=== PATIENT | female | born 1935 | race Caucasian/White ===

== ENCOUNTER 2018-01-03 12:19 | Emergency (ER) | payer MEDICARE, MEDICAID ==
[~2018-01-03] VITALS: Ht 154.9 cm; Wt 106.0 kg
[~2018-01-03 12:19] MED LIST: FURO40TA4 PO; GABA-532 PO; GLIM4TAB79 PO; HYDR-3972 PO; LANTUS SQ; PRE1T PO; SOTA80TA PO; VALS1TAB81 PO
[2018-01-03 15:37] LABS: BASOPHILS % (AUTO) 0.1 % (0-1); EOSINOPHILS # (AUTO) 0.3 X10'3 (0-0.9); EOSINOPHILS % (AUTO) 2.8 % (0-6); HEMATOCRIT 33.9 % (35.0-45.0); HEMOGLOBIN 11.1 g/dl (12.0-16.0); LYMPHOCYTES # (AUTO) 0.7 X10'3 (1.1-4.8); LYMPHOCYTES % (AUTO) 8.2 % (21-51); MEAN CORPUSCULAR HEMOGLOBIN 28.3 PG (27.0-31.0); MEAN CORPUSCULAR HGB CONC 32.8 % (33.0-36.5); MEAN CORPUSCULAR VOLUME 86.4 FL (78-98); MEAN PLATELET VOLUME 7.7 FL (7.4-10.4); MONOCYTES # (AUTO) 0.3 X10'3 (0-0.9); MONOCYTES % (AUTO) 3.9 % (2-12); NEUTROPHILS # (AUTO) 7.6 X10'3 (1.8-7.7); PLATELET COUNT 285 X10'3 (140-440); RED BLOOD COUNT 3.93 X10'6 (4.20-5.60)
[2018-01-03 15:46] LABS: CLARITY,URINE Clear (Clear); GLUCOSE, URINE Negative (Neg); KETONES,URINE Negative (Neg); LEUKOCYTE ESTERASE ,URINE Trace (Neg); NITRITES, URINE Negative (Neg); OCCULT BLOOD,URINE Negative (Neg); PROTEIN,URINE Negative (Neg); UROBILINOGEN,URINE 0.2 E.U/dL (0.2-1.0)
[2018-01-03 15:50] LABS: COLOR,URINE STRAW (Yellow); UA COLLECTION TYPE OTHER
[2018-01-03 15:51] VITALS: BP 167/76
[2018-01-03 15:57] LABS: BACTERIA,URINE NONE SEEN /HPF (Neg); MUCUS STRANDS NONE SEEN /LPF (Neg); RBC,URINE NONE SEEN /HPF (0-2); SQUAMOUS EPITHELIAL CELL,UR NONE SEEN /LPF (FEW); WBC,URINE NONE SEEN /HPF (0-4)
[2018-01-03 16:02] LABS: ALANINE AMINOTRANSFERASE 20 U/L (12-78); ALBUMIN 3.4 G/DL (3.4-5.0); ALBUMIN/GLOBULIN RATIO 0.9 (1.1-1.5); ALKALINE PHOSPHATASE 67 IU/L (46-116); ANION GAP 9 (8-16); ASPARTATE AMINO TRANSFERASE 13 U/L (10-37); BILIRUBIN,TOTAL 0.4 MG/DL (0.1-1.0); BLOOD UREA NITROGEN 26 MG/DL (7-18); CALCIUM 9.3 MG/DL (8.5-10.1); CHLORIDE 97 MMOL/L (99-107); GLUCOSE 198 MG/DL (70-104); MAGNESIUM 1.5 MG/DL (1.5-2.4); POTASSIUM 4.5 MMOL/L (3.5-5.1); SODIUM 136 MMOL/L (135-145); TOTAL CARBON DIOXIDE 30.5 MMOL/L (24-32); TOTAL PROTEIN 7.2 G/DL (6.4-8.2); eGFR 53 ML/MIN
== END 2018-01-03 18:45 | disposition home or self-care (01) ==
LOC: ER 12:20
DX: E11.42 Type 2 diabetes mellitus with diabetic polyneuropathy (principal); I50.9 Heart failure, unspecified; M79.7 Fibromyalgia; Z88.2 Allergy status to sulfonamides; Z79.4 Long term (current) use of insulin
CPT/HCPCS: 36415; 80053; 81001; 83735; 85025; 93971; 99285

== ENCOUNTER 2020-02-11 17:24 | Inpatient (IN) | payer MEDICARE, MEDICAID ==
[~2020-02-11] VITALS: Ht 162.6 cm; Wt 106.8 kg
[~2020-02-11 17:24] MED LIST changes: +GLIM4TAB7 PO; -GLIM4TAB79 PO
--- NOTE | 2020-02-11 18:35 | NUR ---
pt resides at [facility] on [address] here in [place]
[2020-02-11 18:45] LABS: ALANINE AMINOTRANSFERASE 14 U/L (12-78); ALBUMIN 2.6 G/DL (3.4-5.0); ALBUMIN/GLOBULIN RATIO 0.6 (1.1-1.5); ALKALINE PHOSPHATASE 78 IU/L (46-116); ANION GAP 5 (8-16); ASPARTATE AMINO TRANSFERASE 21 U/L (10-37); BILIRUBIN,TOTAL 0.6 MG/DL (0.1-1.0); BLOOD UREA NITROGEN 61 MG/DL (7-18); BUN/CREATININE RATIO 18.2 (6.6-38.0); CALCIUM 8.9 MG/DL (8.5-10.1); CHLORIDE 101 MMOL/L (99-107); CREATININE 3.35 MG/DL (0.40-0.90); GLUCOSE 145 MG/DL (70-104); MAGNESIUM 2.4 MG/DL (1.5-2.4); SODIUM 137 MMOL/L (135-145); TOTAL CARBON DIOXIDE 30.9 MMOL/L (24-32); TOTAL PROTEIN 6.7 G/DL (6.4-8.2); eGFR 13 ML/MIN
[2020-02-11 18:48] LABS: POTASSIUM 6.1 MMOL/L (3.5-5.1)
[2020-02-11 18:53] LABS: BASOPHILS % (AUTO) 0.4 % (0-1); EOSINOPHILS # (AUTO) 0.2 X10'3 (0-0.9); EOSINOPHILS % (AUTO) 1.6 % (0-6); HEMATOCRIT 28.7 % (35.0-45.0); HEMOGLOBIN 9.5 g/dl (12.0-16.0); LYMPHOCYTES # (AUTO) 0.6 X10'3 (1.1-4.8); LYMPHOCYTES % (AUTO) 5.1 % (21-51); MEAN CORPUSCULAR HEMOGLOBIN 29.2 PG (27.0-31.0); MEAN CORPUSCULAR HGB CONC 33.2 g/dL (33.0-36.5); MEAN PLATELET VOLUME 8.3 FL (7.4-10.4); MONOCYTES % (AUTO) 8.8 % (2-12); NEUTROPHILS # (AUTO) 9.8 X10'3 (1.8-7.7); NEUTROPHILS % (AUTO) 84.1 % (42-75); PLATELET COUNT 301 X10'3 (140-440); RED BLOOD COUNT 3.27 X10'6 (4.20-5.60); RED CELL DISTRIBUTION WIDTH 14.6 % (11.5-14.5); WHITE BLOOD COUNT 11.6 X10'3 (4.5-11.0)
[2020-02-11] MEDS ORDERED: furosemide 40mg/4ml inj IV ONE (18:55)
[2020-02-11] MEDS ORDERED: insulin regular, human U-100 3ml vial - multi-dose IV ONE (18:55)
[2020-02-11] MEDS ORDERED: dextrose 50%-water 50ml dispensing syringe IV ONE (18:55)
[2020-02-11] MEDS ORDERED: sodium bicarbonate (8.4%) 1 mEq/ml syringe IV ONE (18:55)
[2020-02-11] MEDS ORDERED: calcium chloride 100 MG/1 ML inj IV ONE (18:55)
[2020-02-11] MEDS ORDERED: LIDOcaine 2% 10ml TOPICAL JELLY (Urojet) TP ONE (18:55)
[2020-02-11 19:45] LABS: CLARITY,URINE CLEAR (Clear); COLOR,URINE YELLOW (Yellow); GLUCOSE, URINE NEGATIVE (Neg); KETONES,URINE NEGATIVE (Neg); LEUKOCYTE ESTERASE ,URINE NEGATIVE (Neg); NITRITES, URINE NEGATIVE (Neg); OCCULT BLOOD,URINE TRACE-INTACT (Neg); PROTEIN,URINE TRACE mg/dl (Neg); UROBILINOGEN,URINE 0.2 E.U/dL (0.2-1.0)
[2020-02-11 19:52] LABS: UA COLLECTION TYPE FOLEY CATH
[2020-02-11 19:54] LABS: BACTERIA,URINE NONE SEEN /HPF (Neg); RBC,URINE NONE SEEN /HPF (0-2); SQUAMOUS EPITHELIAL CELL,UR NONE SEEN /LPF (FEW); TRANSITIONAL EPI CELLS,URINE FEW /HPF; WBC,URINE 0-4 /HPF (0-4)
--- NOTE | 2020-02-11 20:35 | NUR ---
PT NEPHEW, [employer] . PLEASE CALL HIM IF PT NEEDS ANYTHING.
[2020-02-11 21:03] LABS: TOTAL PROTEIN,URINE RANDOM 45.9 MG/DL
--- NOTE | 2020-02-11 21:33 | NUR ---
received pt med list from nicholas connors via telephone. confirmed dosages with pt
[2020-02-11] MEDS ORDERED: ERGO400C (21:39)
[2020-02-11] MEDS ORDERED: ASPI81TA52 PO (21:39)
[2020-02-11] MEDS ORDERED: GLIM4TAB7 PO (21:39)
[2020-02-11] MEDS ORDERED: magnesium hydroxide 30ml (MOM) UD suspension PO PRN (21:45)
[2020-02-11] MEDS ORDERED: acetaminophen 325mg tablet PO PRN (21:45)
[2020-02-11] MEDS ORDERED: sodium polystyrene sulfonate 15gm/60ml oral suspension PO ONE (21:50)
[2020-02-11 21:55] LABS: UA EOSINOPHILS RARE EOS /HPF
--- NOTE | 2020-02-11 22:41 | NUR ---
THIS BOTTOM SANDER NOTIFIED DR MARLEY OF PT O2 LEVELS DROPPING TO 75% WHILE PT IS SLEEPING. DONELL STATES PT HAS HAD OBSTRUCTIVE SLEEP APNEA FOR 11 YEARS AND PT HAS ALWAYS REFUSED CPAP USAGE WHILE SLEEPING. THIS BOTTOM SANDER ASKED PT IF SHE WOULD LIKE ONE WHILE STAYING IN HOSPITAL O2 IS IMPORTANT WHILE SLEEPING-PT REPLIED "NO" AND WENT BACK TO SLEEP. DONELL AWARE OF PT REFUSAL OF CPAP. IF PT CHANGES MIND, INFORM DONELL AND CPAP USAGE AT NIGHT CAN BE STARTED AT PT REQUEST.
[2020-02-11] MEDS: ciprofloxacin 250mg tablet PO SCH (22:51)
--- NOTE | 2020-02-11 23:17 | NUR ---
SPOKE WITH PT DAUGHTER RENNY WILLIS. DAUGHTER IS IN [place] RIGHT NOW AND WILL NOT BE VISITING AND DOES NOT HAVE A REACHABLE PHONE NUMBER BUT STATES THAT SHE WILL CALL DAILY TO GET UPDATES ABOUT PT CONDITION
[2020-02-12 00:35] VITALS: BP 138/51
--- NOTE | 2020-02-12 05:31 | NUR ---
REVIEWED AND AGREE WITH SRN ASSESSMENT FINDINGS
[2020-02-12 06:00] VITALS: BP 135/63
--- NOTE | 2020-02-12 06:15 | NUR ---
Problems reprioritized. Patient report given, questions answered & plan of care reviewed with PANKAJ Orozco.
--- NOTE | 2020-02-12 06:48 | NUR ---
Patient in room PCU 3023. I have received report from MOSES LIRA and had the opportunity to ask questions and assume patient care.
[2020-02-12 06:57] LABS: ALANINE AMINOTRANSFERASE 11 U/L (12-78); ALBUMIN 2.2 G/DL (3.4-5.0); ALBUMIN/GLOBULIN RATIO 0.6 (1.1-1.5); ALKALINE PHOSPHATASE 68 IU/L (46-116); ANION GAP 2 (8-16); ASPARTATE AMINO TRANSFERASE 18 U/L (10-37); BILIRUBIN,TOTAL 0.7 MG/DL (0.1-1.0); BLOOD UREA NITROGEN 55 MG/DL (7-18); BUN/CREATININE RATIO 17.2 (6.6-38.0); CALCIUM 9.3 MG/DL (8.5-10.1); CHLORIDE 102 MMOL/L (99-107); GLUCOSE 140 MG/DL (70-104); POTASSIUM 4.8 MMOL/L (3.5-5.1); SODIUM 142 MMOL/L (135-145); TOTAL CARBON DIOXIDE 37.7 MMOL/L (24-32); TOTAL PROTEIN 6.1 G/DL (6.4-8.2); eGFR 14 ML/MIN
[2020-02-12 06:58] LABS: BASOPHILS % (AUTO) 0.4 % (0-1); EOSINOPHILS # (AUTO) 0.2 X10'3 (0-0.9); EOSINOPHILS % (AUTO) 1.7 % (0-6); HEMATOCRIT 29.6 % (35.0-45.0); HEMOGLOBIN 9.9 g/dl (12.0-16.0); LYMPHOCYTES # (AUTO) 0.5 X10'3 (1.1-4.8); MEAN CORPUSCULAR HEMOGLOBIN 29.4 PG (27.0-31.0); MEAN CORPUSCULAR HGB CONC 33.4 g/dL (33.0-36.5); MEAN CORPUSCULAR VOLUME 88.1 FL (78-98); MEAN PLATELET VOLUME 8.1 FL (7.4-10.4); MONOCYTES # (AUTO) 0.8 X10'3 (0-0.9); MONOCYTES % (AUTO) 9.1 % (2-12); NEUTROPHILS # (AUTO) 7.5 X10'3 (1.8-7.7); NEUTROPHILS % (AUTO) 82.8 % (42-75); PLATELET COUNT 269 X10'3 (140-440); RED BLOOD COUNT 3.36 X10'6 (4.20-5.60); RED CELL DISTRIBUTION WIDTH 14.5 % (11.5-14.5); WHITE BLOOD COUNT 9.1 X10'3 (4.5-11.0)
[2020-02-12 07:30] LABS: HEMOGLOBIN A1C 7.8 % (4.5-6.2)
[2020-02-12] MEDS ORDERED: predniSONE 5mg tablet PO SCH ×2 (08:00→08:03)
[2020-02-12] MEDS ORDERED: HYDROchlorothiazide 12.5mg capsule PO SCH (08:00)
[2020-02-12] MEDS ORDERED: losartan 50mg tablet PO SCH (08:00)
[2020-02-12] MEDS ORDERED: aspirin 81mg tablet.DR PO SCH (08:00)
[2020-02-12] MEDS ORDERED: predniSONE 1 mg tablet PO SCH ×2 (08:05→08:06)
[2020-02-12] MEDS: sotalol 80mg tablet PO SCH ×2 (08:12→20:48)
[2020-02-12] MEDS: heparin, porcine 5000 units/ml vial SQ SCH ×2 (08:15→20:49)
[2020-02-12] MEDS: predniSONE 1 mg tablet PO SCH ×2 (09:58→12:18)
[2020-02-12] MEDS: ciprofloxacin 250mg tablet PO SCH ×3 (10:00→22:44)
--- NOTE | 2020-02-12 10:49 | NUR ---
PAGER ID: [phone] MESSAGE: ANDRAE [phone] RE: [id number] CHELI CAMPBELL PT WAS HARD TO AROUSE, VS 118/88, HR 83 O2 94% 4L
[2020-02-12 11:00] VITALS: BP 128/69
--- NOTE | 2020-02-12 12:26 | NUR ---
PAGER ID: [phone] MESSAGE: ANDRAE [id number] RE: [id number] [facility], SAYS SHE MAY BENEFIT FROM A DEBRIDEMENT ON THE LEFT FOOT WOUND, FEELS IT IS DOWN TO THE BONE.
[2020-02-12] MEDS ORDERED: insulin Lispro (HumaLOG) vial - multi-dose SQ SCH (13:10)
[2020-02-12] MEDS ORDERED: glucagon, human recombinant 1mg kit SUBCUT PRN (13:10)
[2020-02-12] MEDS ORDERED: MESSAGE TO PHARMACY PO ONE (13:10)
[2020-02-12] MEDS ORDERED: dextrose 50%-water 50ml dispensing syringe IV PRN ×2 (13:10)
[2020-02-12] MEDS ORDERED: dextrose ORAL solution 15 GM/59 ML bottle PO PRN ×2 (13:10)
[2020-02-12] MEDS ORDERED: acetaminophen 325mg tablet PO PRN (13:40)
[2020-02-12 15:00] VITALS: BP 114/51
[2020-02-12] MEDS: normal saline 1000ml 1,000 ML IV SCH ×2 (15:21→22:40)
--- NOTE | 2020-02-12 16:28 | NUR ---
PAGER ID: [phone] MESSAGE: ANDRAE [phone] RE: CHELI [id number] PT C/O GAS PAIN, SIMETHICONE?
--- NOTE | 2020-02-12 16:54 | NUR ---
DM/Malnutrition consult. Current pt stated weight at 106.82 kg this admission and per documented weight history her stated weight in 2018 was 106 kg; no reported change in weight. No edema. Normal muscle strength. Appetite is poor, PO intake 0-25% carb controlled diet. Does not meet more than two criteria for malnutrition, no malnutrition at this time. Pt admitted with non healing left foot DM ulcer, pulmonary HTN, sleep apnea, CHF, MIKE, hyperkalemia, and DJD. Patient seen at bedside due to A1c of 7.8%, given written DM education handout with verbal review and referral to outpatient DM education class on Saturday. Also given written high protein education handout with verbal review in view of wound healing needs d/t DM foot ulcer. Reports no chewing or swallowing difficulty, reports no GI symptoms. Is agreeable to an oral nutrition supplement for protein in view of suboptimal PO intake. Recommend Glucerna with meals, notified MD. Will continue to follow. Addendum: 02/12/20 at [address] Amended: Links added.
--- NOTE | 2020-02-12 17:59 | NUR ---
Student documentation: I have reviewed and agree with all interventions, assessments performed and documented by JAMES HORVATH. Student Medication Administration: For this medication-pass time frame, all medication were reviewed, dispensed, administered and documented per hospital policy by JAMES HORVATH.
[2020-02-12] MEDS: NUT.TX.GLUC.INTOLER,LAC-FR,SOY (GLUCERNA) 237 ML PO SCH (18:00)
--- NOTE | 2020-02-12 18:19 | NUR ---
Problems reprioritized. Patient report given, questions answered & plan of care reviewed with BRENDA LIRA.
[2020-02-12 19:00] VITALS: BP 143/69
[2020-02-12] MEDS: lactobacillus rhamnosus 10,000 MMU CELLS/CAPSULE PO SCH (20:48)
[2020-02-12] MEDS: insulin glargine (Lantus) pen - multi-dose SQ SCH (21:00)
[2020-02-12] MEDS: simethicone 125mg capsule PO PRN (22:55)
[2020-02-12 23:00] VITALS: BP 144/61
[2020-02-13 03:00] VITALS: BP 128/68
[2020-02-13 05:13] LABS: BASOPHILS % (AUTO) 0.4 % (0-1); EOSINOPHILS # (AUTO) 0.3 X10'3 (0-0.9); EOSINOPHILS % (AUTO) 2.6 % (0-6); HEMATOCRIT 29.6 % (35.0-45.0); HEMOGLOBIN 9.8 g/dl (12.0-16.0); LYMPHOCYTES # (AUTO) 0.6 X10'3 (1.1-4.8); LYMPHOCYTES % (AUTO) 6.6 % (21-51); MEAN CORPUSCULAR HGB CONC 33.2 g/dL (33.0-36.5); MEAN CORPUSCULAR VOLUME 87.5 FL (78-98); MEAN PLATELET VOLUME 8.1 FL (7.4-10.4); MONOCYTES # (AUTO) 0.9 X10'3 (0-0.9); MONOCYTES % (AUTO) 9.2 % (2-12); NEUTROPHILS # (AUTO) 7.9 X10'3 (1.8-7.7); NEUTROPHILS % (AUTO) 81.2 % (42-75); PLATELET COUNT 263 X10'3 (140-440); RED BLOOD COUNT 3.38 X10'6 (4.20-5.60); RED CELL DISTRIBUTION WIDTH 14.5 % (11.5-14.5); WHITE BLOOD COUNT 9.7 X10'3 (4.5-11.0)
[2020-02-13 05:30] LABS: ALANINE AMINOTRANSFERASE 12 U/L (12-78); ALBUMIN/GLOBULIN RATIO 0.5 (1.1-1.5); ALKALINE PHOSPHATASE 70 IU/L (46-116); ANION GAP 2 (8-16); ASPARTATE AMINO TRANSFERASE 13 U/L (10-37); BILIRUBIN,TOTAL 0.6 MG/DL (0.1-1.0); BLOOD UREA NITROGEN 48 MG/DL (7-18); BUN/CREATININE RATIO 17.8 (6.6-38.0); CALCIUM 8.3 MG/DL (8.5-10.1); CHLORIDE 100 MMOL/L (99-107); GLUCOSE 154 MG/DL (70-104); POTASSIUM 4.4 MMOL/L (3.5-5.1); SODIUM 141 MMOL/L (135-145); TOTAL CARBON DIOXIDE 38.8 MMOL/L (24-32); TOTAL PROTEIN 5.8 G/DL (6.4-8.2); eGFR 17 ML/MIN
[2020-02-13 06:00] VITALS: BP 136/87
--- NOTE | 2020-02-13 06:29 | NUR ---
Patient in room PCU 3009. I have received report from Cynthia LIRA and had the opportunity to ask questions and assume patient care.
[2020-02-13] MEDS: predniSONE 1 mg tablet PO SCH (07:14)
[2020-02-13] MEDS: lactobacillus rhamnosus 10,000 MMU CELLS/CAPSULE PO SCH ×2 (07:14→19:33)
[2020-02-13] MEDS: sotalol 80mg tablet PO SCH ×2 (07:14→19:34)
[2020-02-13] MEDS: mag hydrox/Alum hydrox/simeth 30ml oral suspension PO PRN (07:15)
[2020-02-13] MEDS: heparin, porcine 5000 units/ml vial SQ SCH ×2 (07:15→19:32)
[2020-02-13] MEDS: NUT.TX.GLUC.INTOLER,LAC-FR,SOY (GLUCERNA) 237 ML PO SCH ×3 (08:00→18:39)
[2020-02-13] MEDS: normal saline 1000ml 1,000 ML IV SCH ×2 (08:40→18:40)
[2020-02-13] MEDS: ondansetron/PF 4mg/2ml inj IV PRN (09:07)
[2020-02-13] MEDS: ciprofloxacin 250mg tablet PO SCH (09:07)
[2020-02-13 11:00] VITALS: BP 128/67
[2020-02-13 15:00] VITALS: BP 121/66
--- NOTE | 2020-02-13 17:32 | NUR ---
received orders to change cipro to cefazolin for cellulitis to E
[2020-02-13 18:00] VITALS: BP 120/58
--- NOTE | 2020-02-13 18:28 | NUR ---
Problems reprioritized. Patient report given, questions answered & plan of care reviewed with Carmen LIRA.
--- NOTE | 2020-02-13 18:36 | NUR ---
Patient in room PCU 3009. I have received report from Juma LIRA and had the opportunity to ask questions and assume patient care.
[2020-02-13] MEDS: traMADol 50MG tablet PO PRN (19:36)
[2020-02-13] MEDS: cefazolin/dext.iso 2gm/100ml 100 ML IV SCH (19:39)
[2020-02-13] MEDS: insulin glargine (Lantus) pen - multi-dose SQ SCH (21:00)
--- NOTE | 2020-02-13 21:34 | NUR ---
Patient met hyperglycemic protocol. Attempted to administer insulin per protocol. Patient refuses insulin at this time.
[2020-02-13 22:00] VITALS: BP 141/71
[2020-02-14 02:00] VITALS: BP 138/63
--- NOTE | 2020-02-14 03:00 | NUR ---
Patient in room PCU 3009. I have received report from Shannan LIRA and had the opportunity to ask questions and assume patient care.
--- NOTE | 2020-02-14 03:02 | NUR ---
Problems reprioritized. Patient report given, questions answered & plan of care reviewed with Sia LIRA.
[2020-02-14] MEDS: normal saline 1000ml 1,000 ML IV SCH ×2 (04:40→15:51)
--- NOTE | 2020-02-14 05:59 | NUR ---
Student documentation: I have reviewed and agree with all interventions, assessments performed and documented by Marita HORVATH. Student Medication Administration: For this medication-pass time frame, all medication were reviewed, dispensed, administered and documented per hospital policy by Marita HORVATH.
[2020-02-14 06:04] LABS: BASOPHILS # (AUTO) 0.1 X10'3 (0-0.2); BASOPHILS % (AUTO) 0.8 % (0-1); EOSINOPHILS # (AUTO) 0.2 X10'3 (0-0.9); EOSINOPHILS % (AUTO) 2.5 % (0-6); HEMATOCRIT 28.7 % (35.0-45.0); HEMOGLOBIN 9.5 g/dl (12.0-16.0); LYMPHOCYTES # (AUTO) 0.6 X10'3 (1.1-4.8); LYMPHOCYTES % (AUTO) 6.5 % (21-51); MEAN PLATELET VOLUME 8.3 FL (7.4-10.4); MONOCYTES # (AUTO) 0.8 X10'3 (0-0.9); MONOCYTES % (AUTO) 8.4 % (2-12); NEUTROPHILS # (AUTO) 7.7 X10'3 (1.8-7.7); NEUTROPHILS % (AUTO) 81.8 % (42-75); PLATELET COUNT 274 X10'3 (140-440); RED BLOOD COUNT 3.27 X10'6 (4.20-5.60); RED CELL DISTRIBUTION WIDTH 14.4 % (11.5-14.5); WHITE BLOOD COUNT 9.4 X10'3 (4.5-11.0)
[2020-02-14 06:34] LABS: ALANINE AMINOTRANSFERASE 9 U/L (12-78); ALBUMIN/GLOBULIN RATIO 0.5 (1.1-1.5); ALKALINE PHOSPHATASE 65 IU/L (46-116); ANION GAP 4 (8-16); ASPARTATE AMINO TRANSFERASE 13 U/L (10-37); BILIRUBIN,TOTAL 0.4 MG/DL (0.1-1.0); BLOOD UREA NITROGEN 38 MG/DL (7-18); BUN/CREATININE RATIO 18.8 (6.6-38.0); CHLORIDE 101 MMOL/L (99-107); CREATININE 2.02 MG/DL (0.40-0.90); GLUCOSE 149 MG/DL (70-104); POTASSIUM 4.3 MMOL/L (3.5-5.1); SODIUM 140 MMOL/L (135-145); TOTAL CARBON DIOXIDE 34.9 MMOL/L (24-32); eGFR 24 ML/MIN
--- NOTE | 2020-02-14 06:42 | NUR ---
Patient in room PCU 3009. I have received report from Sia LIRA and had the opportunity to ask questions and assume patient care.
--- NOTE | 2020-02-14 06:49 | NUR ---
Problems reprioritized. Patient report given, questions answered & plan of care reviewed with Brittany LIRA.
[2020-02-14 07:00] VITALS: BP 134/78
[2020-02-14] MEDS: predniSONE 1 mg tablet PO SCH (07:35)
[2020-02-14] MEDS: lactobacillus rhamnosus 10,000 MMU CELLS/CAPSULE PO SCH ×2 (07:35→21:37)
[2020-02-14] MEDS: cefazolin/dext.iso 2gm/100ml 100 ML IV SCH ×2 (07:35→21:35)
[2020-02-14] MEDS: sotalol 80mg tablet PO SCH ×2 (07:35→21:35)
[2020-02-14] MEDS: heparin, porcine 5000 units/ml vial SQ SCH ×2 (07:36→21:37)
[2020-02-14] MEDS: NUT.TX.GLUC.INTOLER,LAC-FR,SOY (GLUCERNA) 237 ML PO SCH ×3 (08:00→18:00)
[2020-02-14] MEDS: ondansetron/PF 4mg/2ml inj IV PRN ×2 (09:28→18:58)
--- NOTE | 2020-02-14 09:32 | NUR ---
Pt. complained of mild nausea, saltine crackers administered to assist with GI upset. Re-assment and patient is more nauseated. PRN Zofran given. MD at bedside and aware of nausea. IVF to continue with MIKE. Pt. is not in any respiratory distress.
[2020-02-14 11:00] VITALS: BP 154/76
[2020-02-14] MEDS: traMADol 50MG tablet PO PRN ×4 (11:33→23:34)
--- NOTE | 2020-02-14 11:42 | NUR ---
Received a phone call from Pt's daughter Bebe, patient was abrupt and rude stating, "Im getting mad at you guys because your not doing what you said, she was supposed to be getting Ultram routinely." Explained that her mothers only complaint for this nurse was nausea today. Pt. was repositioned for mild 2/10 neck pain where she reported feeling better with the position change. Pt's nephew was at the bedside all morning and stated that there is a lot of family dynamics and he stated he was concerned about the patients daughter pulling her out. Pt's daughter made statements of wanting to discharge her mother back to live with her and not home. Went in immediately and asked about pain or any other complaints that she made have had. She did in fact state, "Im not comfortable." Asked if she was in pain and if she felt she needed her PRN Ultram which she stated, "yes." Ultram administered and patient was repositioned. Pt. stated the Ultram worked well for her yesterday. Pt. offers no other complaints at this time. Pt's daughter stated that her mother tends to not complain about what really going on with her, asked pt. if this is correct and she stated, "Probably." Pt. then stated, "My daughter is bossy." Provided 1:1 active listening and reminded her to please inform nursing staff if she has any needs that need to be met at this time." Will continue to monitor.
--- NOTE | 2020-02-14 11:52 | NUR ---
I SPOKE WITH PATIENTS DAUGHTER WHO STATED THAT "MY MOTHER HAS BEEN PUT BACK INTO A STATE OF HELL". PATIENTS DAUGHTER STATED THAT THE RN IS WITH HOLDING PAIN MEDS FROM HER AND WANTED THE ORDER CHANGED FROM PRN TO A SCHEDULED DOSE. I INFORMED HER THAT THE MD HAS TO OK THAT ORDER AND I WOULD PASS IT ALONG TO THE PRIMARY RN. ALSO INFORMED DAUGHTER THAT THE RN HAD GIVEN PAIN MEDS JUST RECENTLY.
--- NOTE | 2020-02-14 11:58 | NUR ---
Charge nurse reported that the daughter called requesting PRN Ultram to be changed to routine. Asked patient specifically if this is something she is in agreement with since she hadn't been complaining of pain to this nurse. She stated, "yes I would like that." Requested again that she inform nursing of any of her complaints so that nursing can address instead of her daughter calling and speaking for her. Nursing was patient and provided a lot of 1:1 time. Pt. refused therapy initially. Asked if she would like to get up and stretch her back since she has been in bed a lot and she has been medicated already with Ultram. Page sent to MD to address pain medications.
--- NOTE | 2020-02-14 12:01 | NUR ---
PAGER ID: [phone] MESSAGE: [phone] Debbie Bolton - Can we change Ultram to q 4 hrs ATC? Brittany LIRA [phone]
--- NOTE | 2020-02-14 12:04 | NUR ---
Patient is currently getting up with PT, offers no other complaints at this time.
--- NOTE | 2020-02-14 12:15 | NUR ---
Patient up in chair and appears to be comfortable at this time, PT still in the room working with patient. Will continue to monitor.
--- NOTE | 2020-02-14 12:25 | NUR ---
Followed up with patient regarding nausea, pt. stated, "I want water!!" Provided water and asked again, "Do you need another dose of Zofran.?" Pt. stated she has gas. PRN Gas relief provided and reminded patient to let nursing know if pain is not managed or if she needs more nausea medication, Pt. verbalized understanding
[2020-02-14] MEDS: simethicone 125mg capsule PO PRN (12:30)
--- NOTE | 2020-02-14 12:49 | NUR ---
Re-assessment: Pt. offers no complaints. Sitting in chair eating peaches at the moment. Denies any further discomfort and appears happy that she got up with therapy. Pt. thanked staff for their patience.
--- NOTE | 2020-02-14 13:25 | NUR ---
Patients daughter is at bedside, in good spirits which was different than her previous approach on the phone. Pt. is up in chair and offers no complaints. Pt's daughter has multiple concerns regarding her discharge. 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 Stated she has a bed and a lift for her mom to go home on hospice with her. Referred concerns to case management to discuss discharge plans. Explained the importance of preserving her kidney function but managing her pain as well. Explained that MD was paged to see if Ultram could be changed to routine but unsure if that is a good idea for her. Pt. stated she is comfortable at this time.
--- NOTE | 2020-02-14 13:34 | NUR ---
Patients daughter wanted to let nursing staff know that, "My mom is 100% Sicilian and does not always tell people if she needs something, I really do think it's a cultural thing." Informed her that nursing will pass this information along to all involved in care.
--- NOTE | 2020-02-14 14:53 | NUR ---
Patient offers no complaints, stated nausea and pain is under control. Declined wanting to go back to bed, stated she would probably go back to bed around 3:30-4:00 pm. Will reassess.
[2020-02-14 15:00] VITALS: BP 112/58
--- NOTE | 2020-02-14 16:36 | NUR ---
Patient was transferred back to bed and she was medicated with PRN Ultram. Pt. is doing well today. IV started sounding with "high pressure alarm" PIV flushed but took a little resistance. New PIV placed to L wrist area and NS is infusing per MD order without any complications. Pt. tolerated the procedure very well. Pt. stated that she was feeling good. Will continue to monitor.
--- NOTE | 2020-02-14 17:40 | NUR ---
Patient is resting comfortably with family at the bedside. Pt. offers no complaints and appears in good spirits. Will continue to monitor.
[2020-02-14 18:00] VITALS: BP 164/58
--- NOTE | 2020-02-14 18:12 | NUR ---
Problems reprioritized. Patient report given, questions answered & plan of care reviewed with Roger LIRA.
--- NOTE | 2020-02-14 18:35 | NUR ---
Patient in room PCU 3009. I have received report from Brittany LIRA and had the opportunity to ask questions and assume patient care.
[2020-02-14] MEDS: insulin glargine (Lantus) pen - multi-dose SQ SCH (21:00)
[2020-02-14 21:28] VITALS: BP 161/74
[2020-02-14] MEDS: mag hydrox/Alum hydrox/simeth 30ml oral suspension PO PRN (21:49)
[2020-02-14] MEDS ORDERED: proCHLORperazine 10 MG/2 ml inj IV PRN (23:05)
[2020-02-15] VITALS (8 sets, daily range): BP systolic 133–173; BP diastolic 70–87
--- NOTE | 2020-02-15 00:18 | NUR ---
PAGER ID: [phone] MESSAGE: Patient Debbie Bolton in room 3003S is requesting a sleeping pill. [facility] Arely [id number]
[2020-02-15] MEDS ORDERED: temazepam 15mg capsule PO PRN (00:20)
--- NOTE | 2020-02-15 02:24 | NUR ---
PAGER ID: [phone] MESSAGE: Patient Maya Bolton in room 3009A desated while on NC and is currently has an oxygen saturation in the 90s while on a nonrebreather 12.0 LPM. [facility] Arely [phone]
--- NOTE | 2020-02-15 02:54 | NUR ---
Patient was given restoril to help sleep by break nurse. patient became very tired, sat on edge of bed with the nephew. was starting to fall asleep on the edge of the bed. patient was repositioned in bed, shortly after desaturated to 64%, systolic blood pressure of 98. A nonrebreather mask was put on the patient and her O2 was brought up to 93. Patient is on 3L NC currently with systolic pressure of 136. patient is sleepy but arousable. Dr. Gibson is aware and ordered to DC the restoril. Will continue to monitor the patient.
[2020-02-15] MEDS: normal saline 1000ml 1,000 ML IV SCH (03:59)
[2020-02-15 05:28] LABS: BASOPHILS % (AUTO) 0.3 % (0-1); EOSINOPHILS # (AUTO) 0.2 X10'3 (0-0.9); HEMATOCRIT 28.7 % (35.0-45.0); HEMOGLOBIN 9.3 g/dl (12.0-16.0); LYMPHOCYTES # (AUTO) 0.6 X10'3 (1.1-4.8); LYMPHOCYTES % (AUTO) 7.7 % (21-51); MEAN CORPUSCULAR HEMOGLOBIN 28.5 PG (27.0-31.0); MEAN CORPUSCULAR HGB CONC 32.4 g/dL (33.0-36.5); MEAN CORPUSCULAR VOLUME 87.8 FL (78-98); MEAN PLATELET VOLUME 8.5 FL (7.4-10.4); MONOCYTES # (AUTO) 0.7 X10'3 (0-0.9); MONOCYTES % (AUTO) 7.9 % (2-12); NEUTROPHILS # (AUTO) 6.8 X10'3 (1.8-7.7); NEUTROPHILS % (AUTO) 82.1 % (42-75); PLATELET COUNT 249 X10'3 (140-440); RED BLOOD COUNT 3.27 X10'6 (4.20-5.60); RED CELL DISTRIBUTION WIDTH 14.3 % (11.5-14.5); WHITE BLOOD COUNT 8.3 X10'3 (4.5-11.0)
[2020-02-15 05:50] LABS: ALANINE AMINOTRANSFERASE 9 U/L (12-78); ALBUMIN/GLOBULIN RATIO 0.5 (1.1-1.5); ALKALINE PHOSPHATASE 66 IU/L (46-116); ANION GAP 1 (8-16); ASPARTATE AMINO TRANSFERASE 14 U/L (10-37); BILIRUBIN,TOTAL 0.3 MG/DL (0.1-1.0); BLOOD UREA NITROGEN 35 MG/DL (7-18); BUN/CREATININE RATIO 21.3 (6.6-38.0); CALCIUM 7.4 MG/DL (8.5-10.1); CHLORIDE 98 MMOL/L (99-107); CREATININE 1.64 MG/DL (0.40-0.90); GLUCOSE 145 MG/DL (70-104); POTASSIUM 4.4 MMOL/L (3.5-5.1); SODIUM 133 MMOL/L (135-145); TOTAL PROTEIN 5.8 G/DL (6.4-8.2); eGFR 30 ML/MIN
--- NOTE | 2020-02-15 06:15 | NUR ---
Problems reprioritized. Patient report given, questions answered & plan of care reviewed with Mena LIRA.
--- NOTE | 2020-02-15 06:30 | NUR ---
Patient in room PCU 3009. I have received report from Lazarus LIRA and had the opportunity to ask questions and assume patient care.
[2020-02-15] MEDS: lactobacillus rhamnosus 10,000 MMU CELLS/CAPSULE PO SCH ×2 (07:39→21:52)
[2020-02-15] MEDS: heparin, porcine 5000 units/ml vial SQ SCH ×2 (07:39→21:53)
[2020-02-15] MEDS: predniSONE 1 mg tablet PO SCH (07:39)
[2020-02-15] MEDS: cefazolin/dext.iso 2gm/100ml 100 ML IV SCH ×2 (07:39→21:52)
[2020-02-15] MEDS: NUT.TX.GLUC.INTOLER,LAC-FR,SOY (GLUCERNA) 237 ML PO SCH ×3 (07:39→18:00)
[2020-02-15] MEDS: sotalol 80mg tablet PO SCH ×2 (07:39→21:52)
[2020-02-15] MEDS: traMADol 50MG tablet PO PRN ×2 (10:28→20:01)
[2020-02-15] MEDS: simethicone 125mg capsule PO PRN ×2 (10:28→20:46)
--- NOTE | 2020-02-15 10:50 | NUR ---
Dr Porter at the bedside assessing patient, received orders to stop IV fluids. Will continue to monitor the patient closely.
--- NOTE | 2020-02-15 18:28 | NUR ---
Problems reprioritized. Patient report given, questions answered & plan of care reviewed with Lazarus LIRA .
--- NOTE | 2020-02-15 18:41 | NUR ---
Patient in room PCU 3009. I have received report from Mena LIRA and had the opportunity to ask questions and assume patient care.
[2020-02-15] MEDS: insulin glargine (Lantus) pen - multi-dose SQ SCH (21:00)
[2020-02-15] MEDS: mag hydrox/Alum hydrox/simeth 30ml oral suspension PO PRN (22:32)
[2020-02-16 02:30] VITALS: BP 162/90
[2020-02-16] MEDS: ondansetron/PF 4mg/2ml inj IV PRN (04:58)
[2020-02-16 05:21] LABS: BASOPHILS % (AUTO) 0.5 % (0-1); EOSINOPHILS # (AUTO) 0.3 X10'3 (0-0.9); EOSINOPHILS % (AUTO) 4.2 % (0-6); HEMATOCRIT 29.7 % (35.0-45.0); HEMOGLOBIN 10.3 g/dl (12.0-16.0); LYMPHOCYTES # (AUTO) 0.6 X10'3 (1.1-4.8); LYMPHOCYTES % (AUTO) 7.7 % (21-51); MEAN CORPUSCULAR HEMOGLOBIN 29.6 PG (27.0-31.0); MEAN CORPUSCULAR HGB CONC 34.5 g/dL (33.0-36.5); MEAN CORPUSCULAR VOLUME 85.6 FL (78-98); MONOCYTES # (AUTO) 0.6 X10'3 (0-0.9); MONOCYTES % (AUTO) 6.9 % (2-12); NEUTROPHILS # (AUTO) 6.7 X10'3 (1.8-7.7); NEUTROPHILS % (AUTO) 80.7 % (42-75); PLATELET COUNT 326 X10'3 (140-440); RED BLOOD COUNT 3.47 X10'6 (4.20-5.60); RED CELL DISTRIBUTION WIDTH 14.2 % (11.5-14.5); WHITE BLOOD COUNT 8.2 X10'3 (4.5-11.0)
[2020-02-16 06:00] VITALS: BP 143/77
--- NOTE | 2020-02-16 06:08 | NUR ---
Problems reprioritized. Patient report given, questions answered & plan of care reviewed with Mena LIRA.
--- NOTE | 2020-02-16 06:09 | NUR ---
Patient in room PCU 3009. I have received report from Lazarus LIRA and had the opportunity to ask questions and assume patient care.
[2020-02-16] MEDS: traMADol 50MG tablet PO PRN ×2 (06:18→14:12)
[2020-02-16 06:24] LABS: ALBUMIN 2.2 G/DL (3.4-5.0); ALBUMIN/GLOBULIN RATIO 0.5 (1.1-1.5); ALKALINE PHOSPHATASE 71 IU/L (46-116); ANION GAP 5 (8-16); ASPARTATE AMINO TRANSFERASE 20 U/L (10-37); BILIRUBIN,TOTAL 0.3 MG/DL (0.1-1.0); BLOOD UREA NITROGEN 29 MG/DL (7-18); BUN/CREATININE RATIO 19.6 (6.6-38.0); CALCIUM 7.6 MG/DL (8.5-10.1); CHLORIDE 96 MMOL/L (99-107); CREATININE 1.48 MG/DL (0.40-0.90); GLUCOSE 111 MG/DL (70-104); POTASSIUM 4.2 MMOL/L (3.5-5.1); SODIUM 135 MMOL/L (135-145); TOTAL CARBON DIOXIDE 34.4 MMOL/L (24-32); TOTAL PROTEIN 6.4 G/DL (6.4-8.2); eGFR 34 ML/MIN
[2020-02-16 06:30] LABS: ALANINE AMINOTRANSFERASE < 6 U/L (12-78)
[2020-02-16] MEDS: cefazolin/dext.iso 2gm/100ml 100 ML IV SCH (08:47)
[2020-02-16] MEDS: NUT.TX.GLUC.INTOLER,LAC-FR,SOY (GLUCERNA) 237 ML PO SCH ×2 (08:48→13:26)
[2020-02-16] MEDS: lactobacillus rhamnosus 10,000 MMU CELLS/CAPSULE PO SCH (08:48)
[2020-02-16] MEDS: sotalol 80mg tablet PO SCH (08:48)
[2020-02-16] MEDS: predniSONE 1 mg tablet PO SCH (08:48)
[2020-02-16] MEDS: heparin, porcine 5000 units/ml vial SQ SCH (08:48)
[2020-02-16] MEDS ORDERED: furosemide 20 MG/2 ML vial IV ONE (10:30)
[2020-02-16] MEDS: simethicone 125mg capsule PO PRN (10:31)
[2020-02-16 11:00] VITALS: BP 165/84
[2020-02-16 11:05] VITALS: BP 155/82
--- NOTE | 2020-02-16 11:20 | NUR ---
Answered phone for room 9 and was yelled at by a woman who claimed to be the patient's daughter Bebe. Bebe was speaking wildly about multiple different things and saying that our OR NURSE MANAGER's are not educated. Bebe then asked me if I thought the Caronavirus was not an important thing? and asked me about her mom being transferred. I told the daughter that I was not her mother's RN and if case management had arranged placement then it would be a safe discharge but I had no reference to what she was talking about.
--- NOTE | 2020-02-16 12:11 | NUR ---
Called report to Desmond LIRA at [facility] Patient report given, questions answered & plan of care reviewed.
[2020-02-16] MEDS ORDERED: gabapentin 400mg capsule PO SCH (16:00)
--- NOTE | 2020-02-16 17:27 | NUR ---
Stable for transfer per MD orders, report called to Ehsan and problems re-prioritized with RN at the facility, plan of care reviewed with patient and all questions answered, Tele monitor and PIV discontinued, belongings collected and sent with the patient, left the unit at 1727 in a gurney with [facility] personnel and daughter, Bebe.
[2020-02-17] MEDS ORDERED: gabapentin 400mg capsule PO SCH (08:00)
== END 2020-02-16 17:29 | DRG 682 ==
LOC: ER 17:28 → ED HOLD 21:43 → UNDOADMIN 22:08 → PCU 3S 02-12 00:28 → ED HOLD 02-12 00:28 → PCU 3S 02-12 21:36
PROVIDERS: ADMIT Internal Medicine; ATTEND Internal Medicine
DX: N17.9 Acute kidney failure, unspecified (principal); I50.33 Acute on chronic diastolic (congestive) heart failure; E43 Unspecified severe protein-calorie malnutrition; L03.116 Cellulitis of left lower limb; Z68.41 Body mass index [BMI] 40.0-44.9, adult; E11.42 Type 2 diabetes mellitus with diabetic polyneuropathy; E11.621 Type 2 diabetes mellitus with foot ulcer; E66.01 Morbid (severe) obesity due to excess calories; I27.20 Pulmonary hypertension, unspecified; E87.5 Hyperkalemia; M79.7 Fibromyalgia; E11.65 Type 2 diabetes mellitus with hyperglycemia; M25.462 Effusion, left knee; M25.461 Effusion, right knee; D64.9 Anemia, unspecified; G47.33 Obstructive sleep apnea (adult) (pediatric); L97.529 Non-pressure chronic ulcer of other part of left foot with unspecified severity; I48.0 Paroxysmal atrial fibrillation; E86.0 Dehydration; M19.90 Unspecified osteoarthritis, unspecified site; G89.29 Other chronic pain; Z79.52 Long term (current) use of systemic steroids; Z79.4 Long term (current) use of insulin; Z88.2 Allergy status to sulfonamides; Z79.899 Other long term (current) drug therapy
CPT/HCPCS: 36415; 71045; 73564; 76775; 76937; 80053; 81001; 82570; 82948; 83036; 83735; 83880; 83935; 84132; 84133; 84156; 84300; 84439; 84443; 84484; 85025; 87081; 87207; 93005; 93306; 96374; 96375; 97110; 97112; 97116; 97161; 97530; 99285; G0378; J0780; J1644; J1815; J1940; J2405; J7030; J7512